=== PATIENT | male | born 1990 | race Caucasian/White ===

== ENCOUNTER 2020-09-03 03:20 | Emergency (ER) | payer OTHER ==
[~2020-09-03] VITALS: Ht 167.6 cm; Wt 86.2 kg
[~2020-09-03 03:20] MED LIST: NO HOME MEDICATIONS; PEPCID 20MG TAB20 MG PO; PREDNISONE20 MG PO
[2020-09-03] MEDS ORDERED: NORCO 325 MG-51 TAB PO (03:49)
[2020-09-03 04:05] VITALS: BP 155/94; PULSE 111; TEMP 98.1
== END 2020-09-03 04:05 | disposition home or self-care (01) ==
LOC: COL.ER 03:20
DX: S86.112A Strain of other muscle(s) and tendon(s) of posterior muscle group at lower leg level, left leg, initial encounter (principal); F17.290 Nicotine dependence, other tobacco product, uncomplicated; X50.9XXA Other and unspecified overexertion or strenuous movements or postures, initial encounter
CPT/HCPCS: L4386